=== PATIENT | female | born 1970 | race Caucasian/White ===

== ENCOUNTER 2022-09-18 14:49 | Emergency (ER) | payer OTHER ==
[~2022-09-18] VITALS: Ht 162.6 cm; Wt 55.0 kg
[2022-09-18 15:17] VITALS: BP 184/92
== END 2022-09-18 17:15 | disposition home or self-care (01) ==
LOC: ER 14:49
DX: R45.851 Suicidal ideations (principal); F32.A Depression, unspecified; I10 Essential (primary) hypertension
CPT/HCPCS: 99283

== ENCOUNTER 2022-09-18 17:50 | Emergency (ER) | payer OTHER ==
[~2022-09-18] VITALS: Ht 162.6 cm; Wt 54.0 kg
[2022-09-18 18:02] VITALS: BP 180/99
== END 2022-09-18 18:58 | disposition home or self-care (01) ==
LOC: ER 17:50
DX: Z76.89 Persons encountering health services in other specified circumstances (principal); Z59.00 Homelessness unspecified; I10 Essential (primary) hypertension; Z91.51 Personal history of suicidal behavior
CPT/HCPCS: 99281